=== PATIENT | male | born 1950 | race Caucasian/White ===

== ENCOUNTER 2021-06-24 07:20 | Outpatient (CLI) | payer OTHER | END 2021-06-24 07:21 | disposition home or self-care (01) | LOC: NUCLEAR 07:20 | PROVIDERS: ATTEND Internal Medicine Cardiovascular Disease | DX: I25.119 Atherosclerotic heart disease of native coronary artery with unspecified angina pectoris (principal); I10 Essential (primary) hypertension | CPT/HCPCS: 78452; 93017; A9500 ==